=== PATIENT | male | born 1955 | race Caucasian/White ===

== ENCOUNTER 2021-02-09 13:25 | Observation (INO) ==
[2021-02-09] MEDS ORDERED: Naloxone 0.4 MG/ML INJ IVP PRN (14:57)
[2021-02-09] MEDS ORDERED: Acetaminophen 325 MG TABLET PO PRN (14:57)
[2021-02-09] MEDS ORDERED: Ipratropium/Albuterol Neb 3 ML IH PRN (15:00)
[2021-02-09] MEDS ORDERED: *HR* LORazepam 2 MG/ML VIAL IVP PRN ×2 (15:01→15:07)
[2021-02-09] MEDS ORDERED: Dextrose Gel 15 GM/37.5 ML TUBE PO PRN ×2 (15:05)
[2021-02-09] MEDS ORDERED: *HR* Dextrose 50 % in Water (Vial) 50 ML VIAL IVP PRN (15:05)
[2021-02-09] MEDS ORDERED: D5% in Water 1,000 ML IVC PRN (15:05)
[2021-02-09] MEDS ORDERED: *HR* Labetalol 20 MG/4 ML SYRINGE IVP PRN (15:11)
[2021-02-09 15:33] LABS: Basophils % 0.8 %; Eosinophils % 0.6 %; Hematocrit 41.1 % (37.5-50.1); Hemoglobin 15.1 g/dL (12.9-16.9); Immature Granulocytes % 0.4 % (0-4); Lymphocytes % 18.3 %; Mean Corpuscular HGB Conc 36.7 g/dL (31.6-35.5); Mean Corpuscular Volume 95.4 fL (83.0-100.0); Mean Platelet Volume 10.4 fL (9.4-12.4); Monocytes # 0.7 K/mcL (0.0-1.3); Neutrophils # 3.4 K/mcL (1.6-8.9); Red Blood Count 4.31 M/mcL (4.19-5.50); Red Cell Distribution Width 11.9 % (11.5-14.5); Segmented Neutrophils % 65.9 %; White Blood Count 5.2 K/mcL (4.3-11.1)
[2021-02-09 15:34] LABS: Platelet Count 68 K/mcL (140-400)
[2021-02-09 15:52] LABS: Amylase 39 Units/L (29-103); Ethanol < 10 mg/dL (Less than 10); Lipase 92 Units/L (11-82)
[2021-02-09 15:59] LABS: BUN/Creatinine Ratio 12 (6-26); Blood Urea Nitrogen 9 mg/dL (8-23); Calcium 9.5 mg/dL (8.6-10.3); Carbon Dioxide 22 mEq/L (23-29); Chloride 83 mEq/L (98-107); Glucose 201 mg/dL (70-105); Osmolality,Calculated 250 (280-300); Potassium 4.8 mEq/L (3.5-5.1); Sodium 118 mEq/L (136-145); eGFR For African Americans > 60 (> 60); eGFR For Non-African Americans > 60 (> 60)
[2021-02-09 16:07] LABS: Thyroid Stimulating Hormone 1.954 mcIU/mL (0.340-5.600)
[2021-02-09] MEDS: 0.9 % Sodium Chloride 1,000 ML IVC SCH (16:20)
[2021-02-09] MEDS: carvediloL 6.25 MG TABLET PO SCH (16:21)
[2021-02-09 16:26] LABS: Estimated Average Glucose 246 mg/dl; Hemoglobin A1C 10.2 %
[2021-02-09] MEDS: *HR* LORazepam 2 MG/ML VIAL IVP PRN (16:34)
[2021-02-09] MEDS: Insulin LISPRO 300 UNITS/3 ML VIAL SUBQ SCH (17:04)
[2021-02-09] MEDS: *HR* Heparin 5,000 UNIT/ML VIAL SQ SCH (18:23)
[2021-02-09] MEDS ORDERED: traZODone 50 MG TABLET PO SCH (21:00)
[2021-02-09 21:32] LABS: BUN/Creatinine Ratio 14 (6-26); Blood Urea Nitrogen 13 mg/dL (8-23); Calcium 8.7 mg/dL (8.6-10.3); Carbon Dioxide 23 mEq/L (23-29); Chloride 85 mEq/L (98-107); Glucose 213 mg/dL (70-105); Osmolality,Calculated 252 (280-300); Potassium 5.1 mEq/L (3.5-5.1); Sodium 118 mEq/L (136-145); eGFR For African Americans > 60 (> 60); eGFR For Non-African Americans > 60 (> 60)
[2021-02-10] MEDS: *HR* LORazepam 2 MG/ML VIAL IVP PRN ×2 (00:07→21:56)
[2021-02-10 01:16] LABS: INR 1.2; Prothrombin Time 13.9 Seconds (9.4-12.1)
[2021-02-10 01:19] LABS: Activated Partial Thrombo Time 27.1 Seconds (26.0-36.0)
[2021-02-10 01:31] LABS: Alanine Aminotransferase 73 Units/L (7-52); Albumin 3.5 g/dL (3.5-5.7); Alkaline Phosphatase 64 Units/L (34-104); Aspartate Amino Transferase 74 Units/L (13-39); BUN/Creatinine Ratio 15 (6-26); Bilirubin,Total 2.7 mg/dL (0.3-1.0); Blood Urea Nitrogen 14 mg/dL (8-23); Carbon Dioxide 23 mEq/L (23-29); Chloride 87 mEq/L (98-107); Globulin 3.5 g/dL (2.4-3.5); Glucose 230 mg/dL (70-105); Osmolality,Calculated 258 (280-300); Potassium 4.5 mEq/L (3.5-5.1); Sodium 120 mEq/L (136-145); eGFR For African Americans > 60 (> 60); eGFR For Non-African Americans > 60 (> 60)
[2021-02-10] MEDS: *HR* Heparin 5,000 UNIT/ML VIAL SQ SCH ×2 (07:16→18:15)
[2021-02-10] MEDS: 0.9 % Sodium Chloride 1,000 ML IVC SCH (07:17)
[2021-02-10] MEDS: carvediloL 6.25 MG TABLET PO SCH (07:48)
[2021-02-10] MEDS: Insulin LISPRO 300 UNITS/3 ML VIAL SUBQ SCH ×5 (07:57→17:00)
[2021-02-10] MEDS ORDERED: *HR* LORazepam 0.5 MG TABLET PO PRN (11:41)
[2021-02-10] MEDS ORDERED: traZODone 50 MG TABLET PO PRN (12:37)
[2021-02-10] MEDS: Nicotine 14 MG PATCH.TD24 TD SCH (12:57)
[2021-02-10 18:13] LABS: Potassium,Urine 35.8 mEq/L; Sodium, Urine 53.1 mEq/L
[2021-02-10] MEDS: Insulin DETEMIR 100 UNIT/ML X5UNITS SUBQ SCH (20:08)
[2021-02-10] MEDS ORDERED: Pregabalin 75 MG CAPSULE PO SCH (21:00)
[2021-02-11 01:34] LABS: BUN/Creatinine Ratio 22 (6-26); Blood Urea Nitrogen 20 mg/dL (8-23); Carbon Dioxide 24 mEq/L (23-29); Chloride 96 mEq/L (98-107); Glucose 157 mg/dL (70-105); Osmolality,Calculated 276 (280-300); Phosphorous 3.1 mg/dL (2.7-4.5); Sodium 130 mEq/L (136-145); eGFR For African Americans > 60 (> 60); eGFR For Non-African Americans > 60 (> 60)
[2021-02-11] MEDS: *HR* Heparin 5,000 UNIT/ML VIAL SQ SCH (05:50)
[2021-02-11 06:58] VITALS: BP 120/69
[2021-02-11] MEDS: Insulin LISPRO 300 UNITS/3 ML VIAL SUBQ SCH ×2 (07:50→07:56)
[2021-02-11] MEDS: Insulin DETEMIR 100 UNIT/ML X5UNITS SUBQ SCH (07:52)
[2021-02-11] MEDS: Nicotine 14 MG PATCH.TD24 TD SCH (07:56)
[2021-02-11] MEDS ORDERED: Pregabalin 75 MG CAPSULE PO SCH (08:00)
[2021-02-11] MEDS ORDERED: Thiamine (B-1) 100 MG TABLET PO SCH (09:00)
[2021-02-11] MEDS ORDERED: lisinopriL 20 MG TABLET PO SCH (09:00)
[2021-02-11 09:10] LABS: Hepatitis B Surface Antigen Nonreactive (Nonreactive)
[2021-02-11 09:42] LABS: Hepatitis B Core IgM Nonreactive (Nonreactive)
[2021-02-11 09:52] LABS: Hepatitis C Virus Antibody Nonreactive (Nonreactive)
[2021-02-11 10:02] LABS: Hepatitis A Antibody IgM Nonreactive (Nonreactive)
== END 2021-02-11 09:28 | disposition home or self-care (01) ==
LOC: 1ANU → 2NNU → SUATTDRO 14:40
PROVIDERS: ADMIT Internal Medicine; ATTEND Internal Medicine

== ENCOUNTER 2021-07-24 13:00 | Observation (INO) ==
[2021-07-24 13:45] LABS: Eosinophils % 0.3 %; Red Cell Distribution Width 13.2 % (11.5-14.5)
[2021-07-24 13:47] LABS: Basophils % 0.5 %; Hematocrit 45.3 % (37.5-50.1); Hemoglobin 16.4 g/dL (12.9-16.9); Immature Granulocytes % 0.4 % (0-4); Immature Platelets 5.8 % (1.1-6.1); Lymphocytes # 1.1 K/mcL (0.6-4.6); Lymphocytes % 14.7 %; Mean Corpuscular HGB Conc 36.2 g/dL (31.6-35.5); Mean Corpuscular Hemoglobin 33.7 pg (28.0-33.3); Mean Platelet Volume 10.2 fL (9.4-12.4); Monocytes # 0.8 K/mcL (0.0-1.3); Monocytes % 11.3 %; Neutrophils # 5.4 K/mcL (1.6-8.9); Red Blood Count 4.87 M/mcL (4.19-5.50); Segmented Neutrophils % 72.8 %; White Blood Count 7.4 K/mcL (4.3-11.1)
[2021-07-24 13:50] LABS: Platelet Count 74 K/mcL (140-400)
[2021-07-24 14:31] LABS: BUN/Creatinine Ratio 18 (6-26); Blood Urea Nitrogen 23 mg/dL (8-23); Calcium 10.9 mg/dL (8.6-10.3); Carbon Dioxide 21 mEq/L (23-29); Chloride 88 mEq/L (98-107); Glucose 194 mg/dL (70-105); Osmolality,Calculated 263 (280-300); Potassium 4.9 mEq/L (3.5-5.1); Sodium 122 mEq/L (136-145); Troponin I < 0.03 ng/mL (< 0.04); eGFR For African Americans > 60 (> 60); eGFR For Non-African Americans 56 (> 60)
[2021-07-24 14:33] LABS: Adenovirus Not Detected (Not Detect); Coronavirus 229E Not Detected (Not Detect); Coronavirus HKU1 Not Detected (Not Detect); Coronavirus NL63 Not Detected (Not Detect); Coronavirus OC43 Not Detected (Not Detect); Human Metapneumovirus Not Detected (Not Detect); Human Rhinovirus/Enterovirus Not Detected (Not Detect); Influenza A Subtype 2009 H1 Not Detected (Not Detect); Influenza B Not Detected (Not Detect); Parainfluenza Virus 1 Not Detected (Not Detect); Parainfluenza Virus 2 Not Detected (Not Detect); Parainfluenza Virus 3 Not Detected (Not Detect); Parainfluenza Virus 4 Not Detected (Not Detect); SARS-CoV-2 Not Detected (Not Detect)
[2021-07-24 14:34] LABS: Bordetella Pertussis Not Detected (Not Detect); Chlamydophila pneumoniae Not Detected (Not Detect); Mycoplasma pneumoniae Not Detected (Not Detect); Respiratory Syncytial Virus Not Detected (Not Detect)
[2021-07-24] MEDS ORDERED: 0.9 % Sodium Chloride 500 ML IVC ONE (15:15)
[2021-07-24] MEDS ORDERED: Ondansetron ODT 4 MG TAB.RAPDIS SL PRN (15:32)
[2021-07-24] MEDS ORDERED: Naloxone 0.4 MG/ML INJ IVP PRN ×3 (15:32→19:02)
[2021-07-24] MEDS ORDERED: Melatonin 3 MG TABLET PO PRN (15:32)
[2021-07-24 15:39] LABS: Bilirubin,Urine Negative (Negative); Blood,Urine Moderate (Negative); Clarity,Urine Clear (Clear); Color,Urine Light-Orange (Yellow); Glucose,Urine (UA) 100 mg/dL (Normal); Ketones,Urine 20 mg/dL (Negative); Leukocyte Esterase,Urine Negative (Negative); Mucus,Urine Few per lpf (None-Few); Nitrite,Urine Negative (Negative); Protein,Urine 50 mg/dL (Neg-Trace); RBC,Urine 0-3 per hpf (0-3); Specific Gravity,Urine 1.015 (1.010-1.025); Urobilinogen,Urine Normal (Normal); WBC,Urine 0-3 per hpf (0-3)
[2021-07-24] MEDS ORDERED: diazePAM 5 MG TABLET PO ONE (16:02)
[2021-07-24] MEDS ORDERED: *HR* LORazepam 2 MG/ML VIAL IVP PRN ×3 (19:56)
[2021-07-24] MEDS ORDERED: D5% in Water 1,000 ML IVC PRN (22:13)
[2021-07-24] MEDS ORDERED: *HR* Dextrose 50 % in Water (Vial) 50 ML VIAL IVP PRN (22:13)
[2021-07-24] MEDS ORDERED: Dextrose Gel 15 GM/37.5 ML TUBE PO PRN ×2 (22:13)
[2021-07-24] MEDS ORDERED: Insulin LISPRO 300 UNITS/3 ML VIAL SUBQ SCH (22:15)
[2021-07-25 02:08] LABS: Basophils % 0.6 %; Hemoglobin 15.8 g/dL (12.9-16.9); Immature Granulocytes % 0.4 % (0-4); Mean Corpuscular Volume 94.2 fL (83.0-100.0); Red Cell Distribution Width 13.2 % (11.5-14.5)
[2021-07-25 02:10] LABS: Basophils # 0.1 K/mcL (0.0-0.2); Eosinophils # 0.1 K/mcL (0.0-0.6); Eosinophils % 0.9 %; Hematocrit 43.9 % (37.5-50.1); Immature Platelets 5.6 % (1.1-6.1); Lymphocytes # 1.8 K/mcL (0.6-4.6); Lymphocytes % 22.2 %; Mean Corpuscular Hemoglobin 33.9 pg (28.0-33.3); Mean Platelet Volume 10.6 fL (9.4-12.4); Monocytes # 1.1 K/mcL (0.0-1.3); Neutrophils # 5.1 K/mcL (1.6-8.9); Red Blood Count 4.66 M/mcL (4.19-5.50); Segmented Neutrophils % 62.9 %; White Blood Count 8.1 K/mcL (4.3-11.1)
[2021-07-25 02:14] LABS: Platelet Count 85 K/mcL (140-400)
[2021-07-25 02:16] LABS: INR 1.2; Prothrombin Time 13.7 Seconds (9.4-12.1)
[2021-07-25 02:22] LABS: BUN/Creatinine Ratio 25 (6-26); Blood Urea Nitrogen 28 mg/dL (8-23); Calcium 10.3 mg/dL (8.6-10.3); Carbon Dioxide 26 mEq/L (23-29); Chloride 92 mEq/L (98-107); Chol/HDL Ratio 1.8 (0-4.9); Cholesterol 94 mg/dL (< 200); Glucose 77 mg/dL (70-105); HDL Cholesterol 52 mg/dL (40-59); LDL Cholesterol,Calculated 24 mg/dL (< 100); Magnesium 2.1 mg/dL (1.6-2.6); Osmolality,Calculated 268 (280-300); Phosphorous 2.3 mg/dL (2.7-4.5); Potassium 4.2 mEq/L (3.5-5.1); Sodium 127 mEq/L (136-145); Triglycerides 88 mg/dL (< 150); eGFR For African Americans > 60 (> 60); eGFR For Non-African Americans > 60 (> 60)
[2021-07-25 07:21] VITALS: O2SAT 95
[2021-07-25] MEDS ORDERED: Insulin LISPRO 300 UNITS/3 ML VIAL SUBQ SCH (07:30)
[2021-07-25 10:36] VITALS: BP 138/80; PULSE 83; TEMP 98.2
[2021-07-25] MEDS ORDERED: Thiamine (B-1) 100 MG, Folic Acid 1 MG, MVI, adult with vitamin K 10 ML in 0.9 % Sodi... IVPB SCH (18:00)
== END 2021-07-25 11:50 | disposition home or self-care (01) ==
LOC: 3ANU 13:00 → EMEROOARM 13:00 → 3ANU 18:20
PROVIDERS: ADMIT Internal Medicine; ATTEND Internal Medicine

== ENCOUNTER 2022-05-22 17:10 | Inpatient (IN) ==
[2022-05-22 18:49] LABS: Basophils % 0.8 %; Eosinophils # 0.1 K/mcL (0.0-0.6); Eosinophils % 2.1 %; Hematocrit 35.5 % (37.5-50.1); Immature Granulocytes % 0.4 % (0-4); Immature Platelets 7.9 % (1.1-6.1); Lymphocytes # 1.3 K/mcL (0.6-4.6); Lymphocytes % 24.8 %; Mean Corpuscular HGB Conc 36.6 g/dL (31.6-35.5); Mean Corpuscular Hemoglobin 36.7 pg (28.0-33.3); Mean Corpuscular Volume 100.3 fL (83.0-100.0); Mean Platelet Volume 10.4 fL (9.4-12.4); Monocytes # 0.6 K/mcL (0.0-1.3); Monocytes % 10.9 %; Neutrophils # 3.2 K/mcL (1.6-8.9); Platelet Count 71 K/mcL (140-400); Red Blood Count 3.54 M/mcL (4.19-5.50); Red Cell Distribution Width 13.2 % (11.5-14.5); White Blood Count 5.2 K/mcL (4.3-11.1)
[2022-05-22 19:05] LABS: BUN/Creatinine Ratio 12 (6-26); Blood Urea Nitrogen 11 mg/dL (8-23); Calcium 7.5 mg/dL (8.6-10.3); Carbon Dioxide 25 mEq/L (23-29); Chloride 85 mEq/L (98-107); Glucose 284 mg/dL (70-105); Osmolality,Calculated 264 (280-300); Potassium 4.2 mEq/L (3.5-5.1); Sodium 122 mEq/L (136-145); eGFR For African Americans > 60 (> 60); eGFR For Non-African Americans > 60 (> 60)
[2022-05-22] MEDS ORDERED: Ondansetron 4 MG/2 ML VIAL IVP STA (19:29)
[2022-05-22] MEDS ORDERED: Morphine Sulfate 2 MG/ML SYRINGE IVP ONE ×2 (19:29→23:55)
[2022-05-22] MEDS ORDERED: Iopamidol - 370 500 ML MLS IVP ONE (19:29)
[2022-05-22 20:18] LABS: Acetaminophen < 10 mcg/mL (10-20); Alanine Aminotransferase 63 Units/L (7-52); Albumin 3.2 g/dL (3.5-5.7); Albumin/Globulin Ratio 0.9 (1.1-2.2); Alkaline Phosphatase 93 Units/L (34-104); Aspartate Amino Transferase 76 Units/L (13-39); Bilirubin,Total 3.2 mg/dL (0.3-1.0); Ethanol 100 mg/dL (Less than 10); Globulin 3.7 g/dL (2.4-3.5); INR 1.2; Lipase 46 Units/L (11-82); Magnesium 1.2 mg/dL (1.6-2.6); Prothrombin Time 12.9 Seconds (9.4-12.1); Total Protein 6.9 g/dL (6.4-8.9)
[2022-05-22 20:20] LABS: Activated Partial Thrombo Time 32.6 Seconds (26.0-36.0)
[2022-05-22] MEDS ORDERED: *HR* LORazepam 1 MG TABLET PO ONE (22:46)
[2022-05-23] MEDS ORDERED: 0.9 % Sodium Chloride 1,000 ML IV ONE (01:03)
[2022-05-23] MEDS ORDERED: Ondansetron 4 MG/2 ML VIAL IVP PRN (01:43)
[2022-05-23] MEDS ORDERED: Naloxone 0.4 MG/ML INJ IVP PRN (01:43)
[2022-05-23] MEDS ORDERED: *HR* LORazepam 2 MG/ML VIAL IVP PRN (01:50)
[2022-05-23] MEDS ORDERED: Calcium Gluconate 1gm/50mL 1 GM/50 ML BAG IVPB ONE (03:47)
[2022-05-23] MEDS ORDERED: *HR* Metoprolol 5 MG/5 ML VIAL IVP ONE (04:12)
[2022-05-23 04:51] LABS: Basophils % 0.9 %; Eosinophils # 0.2 K/mcL (0.0-0.6); Eosinophils % 3.4 %; Hemoglobin 13.3 g/dL (12.9-16.9); Immature Granulocytes % 0.5 % (0-4); Immature Platelets 6.9 % (1.1-6.1); Lymphocytes # 1.3 K/mcL (0.6-4.6); Lymphocytes % 28.9 %; Mean Corpuscular HGB Conc 35.9 g/dL (31.6-35.5); Mean Corpuscular Hemoglobin 36.8 pg (28.0-33.3); Mean Corpuscular Volume 102.5 fL (83.0-100.0); Mean Platelet Volume 10.5 fL (9.4-12.4); Monocytes # 0.5 K/mcL (0.0-1.3); Monocytes % 11.2 %; Neutrophils # 2.4 K/mcL (1.6-8.9); Red Blood Count 3.61 M/mcL (4.19-5.50); Red Cell Distribution Width 13.4 % (11.5-14.5); Segmented Neutrophils % 55.1 %; White Blood Count 4.4 K/mcL (4.3-11.1)
[2022-05-23 04:53] LABS: Platelet Count 57 K/mcL (140-400)
[2022-05-23] MEDS ORDERED: Dextrose Gel 15 GM/37.5 ML TUBE PO PRN ×2 (05:05)
[2022-05-23] MEDS ORDERED: *HR* Dextrose 50 % in Water (Syg) 50 ML SYRINGE IVP PRN (05:05)
[2022-05-23] MEDS ORDERED: D5% in Water 1,000 ML IVC PRN (05:05)
[2022-05-23 05:11] LABS: BUN/Creatinine Ratio 12 (6-26); Blood Urea Nitrogen 10 mg/dL (8-23); Calcium 8.5 mg/dL (8.6-10.3); Carbon Dioxide 29 mEq/L (23-29); Chloride 89 mEq/L (98-107); Chol/HDL Ratio 2.4 (0-4.9); Cholesterol 73 mg/dL (< 200); Glucose 204 mg/dL (70-105); HDL Cholesterol 30 mg/dL (40-59); LDL Cholesterol,Calculated 20 mg/dL (< 100); Magnesium 1.6 mg/dL (1.6-2.6); Osmolality,Calculated 265 (280-300); Phosphorous 3.1 mg/dL (2.7-4.5); Potassium 4.2 mEq/L (3.5-5.1); Sodium 125 mEq/L (136-145); Triglycerides 117 mg/dL (< 150); eGFR For African Americans > 60 (> 60); eGFR For Non-African Americans > 60 (> 60)
[2022-05-23 05:19] LABS: INR 1.2; Prothrombin Time 13.4 Seconds (9.4-12.1)
[2022-05-23 05:24] LABS: Thyroid Stimulating Hormone 6.135 mcIU/mL (0.340-5.600)
[2022-05-23 05:53] LABS: Folate 5.1 ng/mL (3.0-16.0)
[2022-05-23] MEDS: Thiamine (B-1) 100 MG TABLET PO SCH (09:01)
[2022-05-23] MEDS: Multivit/Ca/Min/Fe/FA 1 TAB TABLET PO SCH (09:01)
[2022-05-23] MEDS: Folic Acid 1 MG TABLET PO SCH (09:01)
[2022-05-23] MEDS: *HR* LORazepam 0.5 MG TABLET PO SCH ×3 (09:02→19:58)
[2022-05-23] MEDS: Insulin LISPRO 300 UNITS/3 ML VIAL SUBQ SCH ×3 (09:03→18:18)
[2022-05-23] MEDS: Furosemide 40 MG/4 ML VIAL IVP SCH ×2 (10:09→19:57)
[2022-05-23 10:33] LABS: BUN/Creatinine Ratio 12 (6-26); Blood Urea Nitrogen 10 mg/dL (8-23); Calcium 8.2 mg/dL (8.6-10.3); Carbon Dioxide 22 mEq/L (23-29); Chloride 89 mEq/L (98-107); Glucose 228 mg/dL (70-105); Osmolality,Calculated 260 (280-300); Potassium 4.9 mEq/L (3.5-5.1); Sodium 122 mEq/L (136-145); eGFR For African Americans > 60 (> 60); eGFR For Non-African Americans > 60 (> 60)
[2022-05-23] MEDS: *HR* HYDROcodone/Acet 7.5/325 mg TABLET PO PRN ×2 (11:06→17:44)
[2022-05-23] MEDS ORDERED: Thiamine (B-1) 100 MG, Folic Acid 1 MG, MVI, adult with vitamin K 10 ML in 0.9 % Sodi... IVPB SCH (18:00)
[2022-05-23] MEDS ORDERED: *HR* HYDROmorphone (PF) 1 MG/ML SYRINGE IVP ONE (20:44)
[2022-05-23] MEDS: Pregabalin 75 MG CAPSULE PO SCH (21:05)
[2022-05-23] MEDS: Nicotine 14 MG PATCH.TD24 TD SCH (21:05)
[2022-05-23] MEDS ORDERED: traZODone 50 MG TABLET PO PRN (21:32)
[2022-05-23] MEDS: *HR* LORazepam 2 MG/ML VIAL IVP PRN (23:12)
[2022-05-24] MEDS: *HR* HYDROcodone/Acet 7.5/325 mg TABLET PO PRN ×3 (01:16→17:21)
[2022-05-24] MEDS: Piperacillin/Tazobactam 3.375 GM in 0.9 % Sodium Chloride Mini Bag 100 ML IVPB SCH ×3 (01:16→17:14)
[2022-05-24] MEDS: *HR* LORazepam 2 MG/ML VIAL IVP PRN (05:04)
[2022-05-24] MEDS: Insulin LISPRO 300 UNITS/3 ML VIAL SUBQ SCH ×3 (06:45→17:18)
[2022-05-24 07:04] LABS: Basophils % 0.9 %; Red Blood Count 3.23 M/mcL (4.19-5.50)
[2022-05-24 07:06] LABS: Eosinophils # 0.1 K/mcL (0.0-0.6); Eosinophils % 3.1 %; Hematocrit 33.5 % (37.5-50.1); Hemoglobin 11.8 g/dL (12.9-16.9); Immature Granulocytes % 0.6 % (0-4); Immature Platelets 7.2 % (1.1-6.1); Lymphocytes # 0.8 K/mcL (0.6-4.6); Lymphocytes % 26.4 %; Mean Corpuscular HGB Conc 35.2 g/dL (31.6-35.5); Mean Corpuscular Hemoglobin 36.5 pg (28.0-33.3); Mean Corpuscular Volume 103.7 fL (83.0-100.0); Monocytes # 0.4 K/mcL (0.0-1.3); Monocytes % 11.6 %; Neutrophils # 1.8 K/mcL (1.6-8.9); Red Cell Distribution Width 13.6 % (11.5-14.5); Segmented Neutrophils % 57.4 %; White Blood Count 3.2 K/mcL (4.3-11.1)
[2022-05-24 07:16] LABS: Platelet Count 50 K/mcL (140-400)
[2022-05-24 07:24] LABS: Albumin 2.8 g/dL (3.5-5.7); Albumin/Globulin Ratio 0.8 (1.1-2.2); Bilirubin,Direct 2.6 mg/dL (0.0-0.2); Bilirubin,Indirect 1.9 mg/dL (0.0-1.0); Bilirubin,Total 4.5 mg/dL (0.3-1.0); Globulin 3.4 g/dL (2.4-3.5); Total Protein 6.2 g/dL (6.4-8.9)
[2022-05-24 07:35] LABS: BUN/Creatinine Ratio 16 (6-26); Blood Urea Nitrogen 16 mg/dL (8-23); Carbon Dioxide 31 mEq/L (23-29); Chloride 88 mEq/L (98-107); Glucose 192 mg/dL (70-105); Magnesium 1.4 mg/dL (1.6-2.6); Osmolality,Calculated 268 (280-300); Potassium 4.5 mEq/L (3.5-5.1); Sodium 126 mEq/L (136-145); eGFR For African Americans > 60 (> 60); eGFR For Non-African Americans > 60 (> 60)
[2022-05-24] MEDS: Furosemide 40 MG/4 ML VIAL IVP SCH ×2 (08:53→22:12)
[2022-05-24] MEDS: *HR* LORazepam 0.5 MG TABLET PO SCH ×3 (09:00→22:12)
[2022-05-24] MEDS: lisinopriL 20 MG TABLET PO SCH (09:00)
[2022-05-24] MEDS: Multivit/Ca/Min/Fe/FA 1 TAB TABLET PO SCH (09:00)
[2022-05-24] MEDS: Thiamine (B-1) 100 MG TABLET PO SCH (09:00)
[2022-05-24] MEDS: Folic Acid 1 MG TABLET PO SCH (09:00)
[2022-05-24] MEDS: Pregabalin 75 MG CAPSULE PO SCH ×2 (09:01→22:12)
[2022-05-24] MEDS: Nicotine 14 MG PATCH.TD24 TD SCH (09:02)
[2022-05-24] MEDS ORDERED: Ipratropium/Albuterol Neb 3 ML IH PRN (10:05)
[2022-05-24] MEDS: Thiamine (B-1) 100 MG, Folic Acid 1 MG, MVI, adult with vitamin K 10 ML in 0.9 % Sodi... IVPB SCH (22:11)
[2022-05-25] MEDS: Insulin LISPRO 300 UNITS/3 ML VIAL SUBQ SCH ×5 (00:13→23:57)
[2022-05-25] MEDS: Piperacillin/Tazobactam 3.375 GM in 0.9 % Sodium Chloride Mini Bag 100 ML IVPB SCH ×3 (00:13→15:15)
[2022-05-25] MEDS: *HR* HYDROcodone/Acet 7.5/325 mg TABLET PO PRN ×4 (00:14→19:38)
[2022-05-25 00:54] LABS: Hemoglobin 12.9 g/dL (12.9-16.9); Immature Granulocytes % 0.3 % (0-4)
[2022-05-25 00:56] LABS: Basophils % 0.6 %; Eosinophils # 0.1 K/mcL (0.0-0.6); Eosinophils % 2.6 %; Hematocrit 36.4 % (37.5-50.1); Immature Platelets 6.3 % (1.1-6.1); Lymphocytes % 28.1 %; Mean Corpuscular HGB Conc 35.4 g/dL (31.6-35.5); Mean Corpuscular Hemoglobin 36.4 pg (28.0-33.3); Mean Corpuscular Volume 102.8 fL (83.0-100.0); Mean Platelet Volume 10.8 fL (9.4-12.4); Monocytes # 0.4 K/mcL (0.0-1.3); Monocytes % 10.3 %; Red Blood Count 3.54 M/mcL (4.19-5.50); Red Cell Distribution Width 13.6 % (11.5-14.5); Segmented Neutrophils % 58.1 %; White Blood Count 3.5 K/mcL (4.3-11.1)
[2022-05-25 00:57] LABS: Platelet Count 54 K/mcL (140-400)
[2022-05-25 01:20] LABS: Alanine Aminotransferase 46 Units/L (7-52); Albumin 2.4 g/dL (3.5-5.7); Albumin/Globulin Ratio 0.8 (1.1-2.2); Alkaline Phosphatase 73 Units/L (34-104); Aspartate Amino Transferase 60 Units/L (13-39); BUN/Creatinine Ratio 18 (6-26); Bilirubin,Direct 1.3 mg/dL (0.0-0.2); Bilirubin,Indirect 0.9 mg/dL (0.0-1.0); Bilirubin,Total 2.2 mg/dL (0.3-1.0); Blood Urea Nitrogen 14 mg/dL (8-23); Calcium 6.4 mg/dL (8.6-10.3); Carbon Dioxide 25 mEq/L (23-29); Chloride 99 mEq/L (98-107); Globulin 3.2 g/dL (2.4-3.5); Glucose 197 mg/dL (70-105); Osmolality,Calculated 278 (280-300); Potassium 2.7 mEq/L (3.5-5.1); Sodium 131 mEq/L (136-145); Total Protein 5.6 g/dL (6.4-8.9); eGFR For African Americans > 60 (> 60); eGFR For Non-African Americans > 60 (> 60)
[2022-05-25 01:48] LABS: Magnesium 1.1 mg/dL (1.6-2.6)
[2022-05-25] MEDS: *HR* LORazepam 2 MG/ML VIAL IVP PRN (02:36)
[2022-05-25] MEDS: Pregabalin 75 MG CAPSULE PO SCH ×2 (08:09→19:38)
[2022-05-25] MEDS: Folic Acid 1 MG TABLET PO SCH (08:09)
[2022-05-25] MEDS: Multivit/Ca/Min/Fe/FA 1 TAB TABLET PO SCH (08:09)
[2022-05-25] MEDS: lisinopriL 20 MG TABLET PO SCH (08:09)
[2022-05-25] MEDS: Furosemide 40 MG/4 ML VIAL IVP SCH ×2 (08:10→19:38)
[2022-05-25] MEDS: Nicotine 14 MG PATCH.TD24 TD SCH (08:10)
[2022-05-25] MEDS: Thiamine (B-1) 100 MG TABLET PO SCH (08:11)
[2022-05-25] MEDS: *HR* LORazepam 0.5 MG TABLET PO SCH ×3 (08:15→19:38)
[2022-05-25] MEDS: Magnesium Oxide 400 MG TABLET PO SCH ×2 (08:22→19:38)
[2022-05-25] MEDS: Thiamine (B-1) 100 MG, Folic Acid 1 MG, MVI, adult with vitamin K 10 ML in 0.9 % Sodi... IVPB SCH (19:37)
[2022-05-25 21:19] LABS: BUN/Creatinine Ratio 16 (6-26); Blood Urea Nitrogen 17 mg/dL (8-23); Calcium 8.5 mg/dL (8.6-10.3); Carbon Dioxide 31 mEq/L (23-29); Chloride 90 mEq/L (98-107); Glucose 212 mg/dL (70-105); Osmolality,Calculated 276 (280-300); Potassium 3.7 mEq/L (3.5-5.1); Sodium 129 mEq/L (136-145); eGFR For African Americans > 60 (> 60); eGFR For Non-African Americans > 60 (> 60)
[2022-05-26] MEDS: *HR* HYDROcodone/Acet 7.5/325 mg TABLET PO PRN ×2 (02:21→11:58)
[2022-05-26] MEDS: Piperacillin/Tazobactam 3.375 GM in 0.9 % Sodium Chloride Mini Bag 100 ML IVPB SCH ×2 (02:21→11:59)
[2022-05-26 05:37] LABS: Mean Platelet Volume 10.5 fL (9.4-12.4)
[2022-05-26 05:39] LABS: Basophils % 0.9 %; Eosinophils # 0.1 K/mcL (0.0-0.6); Hematocrit 34.3 % (37.5-50.1); Immature Platelets 6.4 % (1.1-6.1); Lymphocytes # 1.2 K/mcL (0.6-4.6); Lymphocytes % 35.5 %; Mean Corpuscular Hemoglobin 36.8 pg (28.0-33.3); Mean Corpuscular Volume 105.2 fL (83.0-100.0); Monocytes # 0.4 K/mcL (0.0-1.3); Monocytes % 11.9 %; Neutrophils # 1.6 K/mcL (1.6-8.9); Red Blood Count 3.26 M/mcL (4.19-5.50); Segmented Neutrophils % 47.7 %; White Blood Count 3.3 K/mcL (4.3-11.1)
[2022-05-26 05:41] LABS: Platelet Count 53 K/mcL (140-400)
[2022-05-26 05:53] LABS: Alanine Aminotransferase 47 Units/L (7-52); Albumin 2.7 g/dL (3.5-5.7); Albumin/Globulin Ratio 0.7 (1.1-2.2); Alkaline Phosphatase 81 Units/L (34-104); Aspartate Amino Transferase 61 Units/L (13-39); BUN/Creatinine Ratio 16 (6-26); Bilirubin,Direct 1.1 mg/dL (0.0-0.2); Bilirubin,Indirect 0.9 mg/dL (0.0-1.0); Blood Urea Nitrogen 16 mg/dL (8-23); Calcium 8.2 mg/dL (8.6-10.3); Carbon Dioxide 31 mEq/L (23-29); Chloride 95 mEq/L (98-107); Globulin 3.7 g/dL (2.4-3.5); Glucose 85 mg/dL (70-105); Magnesium 1.6 mg/dL (1.6-2.6); Osmolality,Calculated 276 (280-300); Potassium 3.4 mEq/L (3.5-5.1); Sodium 133 mEq/L (136-145); Total Protein 6.4 g/dL (6.4-8.9); eGFR For African Americans > 60 (> 60); eGFR For Non-African Americans > 60 (> 60)
[2022-05-26] MEDS: Insulin LISPRO 300 UNITS/3 ML VIAL SUBQ SCH ×3 (05:58→17:28)
[2022-05-26] MEDS: Pregabalin 75 MG CAPSULE PO SCH (11:58)
[2022-05-26] MEDS: Furosemide 40 MG/4 ML VIAL IVP SCH (11:58)
[2022-05-26] MEDS: Multivit/Ca/Min/Fe/FA 1 TAB TABLET PO SCH (11:58)
[2022-05-26] MEDS: *HR* LORazepam 0.5 MG TABLET PO SCH ×2 (11:58→14:59)
[2022-05-26] MEDS: Thiamine (B-1) 100 MG TABLET PO SCH (11:58)
[2022-05-26] MEDS: Folic Acid 1 MG TABLET PO SCH (11:59)
[2022-05-26] MEDS: lisinopriL 20 MG TABLET PO SCH (11:59)
[2022-05-26] MEDS: Magnesium Oxide 400 MG TABLET PO SCH (11:59)
[2022-05-26] MEDS: Nicotine 14 MG PATCH.TD24 TD SCH (12:00)
[2022-05-26 16:12] VITALS: BP 108/76; PULSE 82; TEMP 98.4; O2SAT 96
[2022-05-26] MEDS ORDERED: Piperacillin/Tazobactam 3.375 GM in 0.9 % Sodium Chloride Mini Bag 100 ML IVPB SCH (20:00)
== END 2022-05-26 19:00 | disposition home or self-care (01) | DRG 378 ==
LOC: EMEROOARM 17:10 → SUATTDRO 05-23 02:09 → 3NENU 05-23 02:09
PROVIDERS: ADMIT Internal Medicine; ATTEND Pharmacist

== ENCOUNTER 2022-06-10 15:11 | Observation (INO) ==
[2022-06-10 16:59] LABS: Basophils # 0.1 K/mcL (0.0-0.2); Basophils % 0.8 %; Eosinophils # 0.1 K/mcL (0.0-0.6); Eosinophils % 1.5 %; Hematocrit 38.6 % (37.5-50.1); Hemoglobin 13.4 g/dL (12.9-16.9); Immature Granulocytes % 0.2 % (0-4); Lymphocytes # 1.2 K/mcL (0.6-4.6); Lymphocytes % 19.9 %; Mean Corpuscular HGB Conc 34.7 g/dL (31.6-35.5); Mean Corpuscular Hemoglobin 36.1 pg (28.0-33.3); Mean Platelet Volume 10.9 fL (9.4-12.4); Monocytes # 0.7 K/mcL (0.0-1.3); Monocytes % 11.8 %; Neutrophils # 4.1 K/mcL (1.6-8.9); Platelet Count 123 K/mcL (140-400); Red Blood Count 3.71 M/mcL (4.19-5.50); Red Cell Distribution Width 13.5 % (11.5-14.5); Segmented Neutrophils % 65.8 %; White Blood Count 6.2 K/mcL (4.3-11.1)
[2022-06-10 17:14] LABS: BUN/Creatinine Ratio 8 (6-26); Blood Urea Nitrogen 6 mg/dL (8-23); Calcium 10.3 mg/dL (8.6-10.3); Carbon Dioxide 28 mEq/L (23-29); Chloride 95 mEq/L (98-107); Glucose 235 mg/dL (70-105); Osmolality,Calculated 275 (280-300); Potassium 4.2 mEq/L (3.5-5.1); Sodium 130 mEq/L (136-145); eGFR For African Americans > 60 (> 60); eGFR For Non-African Americans > 60 (> 60)
[2022-06-10] MEDS ORDERED: Morphine Sulfate 2 MG/ML SYRINGE IVP ONE ×2 (17:34→22:32)
[2022-06-10] MEDS ORDERED: Ondansetron 4 MG/2 ML VIAL IVP ONE (17:34)
[2022-06-10] MEDS ORDERED: 0.9 % Sodium Chloride 1,000 ML IVC ONE (17:34)
[2022-06-10] MEDS ORDERED: Iopamidol - 370 500 ML MLS IVP ONE (17:36)
[2022-06-10 18:04] LABS: Troponin I < 0.03 ng/mL (< 0.04)
[2022-06-10 18:05] LABS: Alanine Aminotransferase 56 Units/L (7-52); Albumin 3.3 g/dL (3.5-5.7); Albumin/Globulin Ratio 0.8 (1.1-2.2); Alkaline Phosphatase 105 Units/L (34-104); Aspartate Amino Transferase 73 Units/L (13-39); Bilirubin,Direct 0.7 mg/dL (0.0-0.2); Bilirubin,Indirect 0.9 mg/dL (0.0-1.0); Bilirubin,Total 1.6 mg/dL (0.3-1.0); Globulin 4.2 g/dL (2.4-3.5); Lipase 54 Units/L (11-82); Total Protein 7.5 g/dL (6.4-8.9)
[2022-06-10 18:17] LABS: INR 1.2; Prothrombin Time 13.2 Seconds (9.4-12.1)
[2022-06-10 18:20] LABS: Activated Partial Thrombo Time 30.3 Seconds (26.0-36.0)
[2022-06-10 19:56] LABS: Bacteria,Urine Few per hpf (None-Few); Bilirubin,Urine Negative (Negative); Blood,Urine Negative (Negative); Clarity,Urine Clear (Clear); Color,Urine Light-Yellow (Yellow); Glucose,Urine (UA) 300 mg/dL (Normal); Ketones,Urine Negative (Negative); Leukocyte Esterase,Urine Negative (Negative); Mucus,Urine Few per lpf (None-Few); Nitrite,Urine Negative (Negative); Protein,Urine Trace mg/dL (Neg-Trace); RBC,Urine 0-3 per hpf (0-3); Specific Gravity,Urine 1.027 (1.010-1.025); Squamous Epithelial Cell,Urine Few per hpf (None-Few); Urobilinogen,Urine Normal (Normal); WBC,Urine 0-3 per hpf (0-3)
[2022-06-10] MEDS ORDERED: Acetaminophen 325 MG TABLET PO PRN (22:02)
[2022-06-10] MEDS ORDERED: *HR* Promethazine 25 MG/ML VIAL IM PRN (22:02)
[2022-06-10] MEDS ORDERED: Naloxone 0.4 MG/ML INJ IVP PRN (22:02)
[2022-06-10] MEDS ORDERED: Ondansetron 4 MG/2 ML VIAL IVP PRN (22:02)
[2022-06-10] MEDS ORDERED: Melatonin 3 MG TABLET PO PRN (22:02)
[2022-06-10] MEDS ORDERED: *HR* LORazepam 2 MG/ML VIAL IVP PRN ×3 (22:07)
[2022-06-10] MEDS ORDERED: *HR* LORazepam 2 MG/ML VIAL IVP ONE (22:33)
[2022-06-10] MEDS ORDERED: Furosemide 40 MG/4 ML VIAL IVP ONE (22:40)
[2022-06-10] MEDS: *HR* OxyCODONE Immed Rel 5 MG TABLET PO PRN (22:42)
[2022-06-11] MEDS: hydrOXYzine pamoate 25 MG CAPSULE PO PRN ×3 (00:02→22:42)
[2022-06-11] MEDS ORDERED: traZODone 50 MG TABLET PO PRN (00:25)
[2022-06-11] MEDS: Nicotine 14 MG PATCH.TD24 TD SCH ×2 (01:08→09:34)
[2022-06-11 01:40] LABS: Basophils # 0.1 K/mcL (0.0-0.2); Basophils % 1.2 %; Eosinophils # 0.2 K/mcL (0.0-0.6); Eosinophils % 3.6 %; Hematocrit 38.6 % (37.5-50.1); Hemoglobin 13.3 g/dL (12.9-16.9); Immature Granulocytes % 0.4 % (0-4); Lymphocytes # 1.6 K/mcL (0.6-4.6); Lymphocytes % 31.8 %; Mean Corpuscular HGB Conc 34.5 g/dL (31.6-35.5); Mean Corpuscular Hemoglobin 36.5 pg (28.0-33.3); Mean Platelet Volume 10.4 fL (9.4-12.4); Monocytes # 0.5 K/mcL (0.0-1.3); Monocytes % 10.3 %; Neutrophils # 2.6 K/mcL (1.6-8.9); Platelet Count 118 K/mcL (140-400); Red Blood Count 3.64 M/mcL (4.19-5.50); Red Cell Distribution Width 13.5 % (11.5-14.5); Segmented Neutrophils % 52.7 %; White Blood Count 4.9 K/mcL (4.3-11.1)
[2022-06-11 01:47] LABS: INR 1.3; Prothrombin Time 14.3 Seconds (9.4-12.1)
[2022-06-11 01:59] LABS: BUN/Creatinine Ratio 9 (6-26); Blood Urea Nitrogen 7 mg/dL (8-23); Calcium 9.7 mg/dL (8.6-10.3); Carbon Dioxide 28 mEq/L (23-29); Chloride 97 mEq/L (98-107); Glucose 186 mg/dL (70-105); Lactate Dehydrogenase 145 Units/L (140-271); Magnesium 1.3 mg/dL (1.6-2.6); Osmolality,Calculated 275 (280-300); Phosphorous 3.6 mg/dL (2.7-4.5); Potassium 4.1 mEq/L (3.5-5.1); Sodium 131 mEq/L (136-145); eGFR For African Americans > 60 (> 60); eGFR For Non-African Americans > 60 (> 60)
[2022-06-11 02:01] LABS: % Iron Saturation 85 % (20-55); Iron 227 mcg/dL (65-175); Transferrin 190 mg/dL (203-362)
[2022-06-11 02:19] LABS: Ferritin 461 ng/mL (20-250)
[2022-06-11] MEDS: *HR* Heparin 5,000 UNIT/ML VIAL SQ SCH ×3 (04:40→20:59)
[2022-06-11] MEDS: *HR* OxyCODONE Immed Rel 5 MG TABLET PO PRN ×3 (04:40→20:58)
[2022-06-11] MEDS ORDERED: cefTRIAXone 2,000 MG in 0.9 % Sodium Chloride 20 ML IVP SCH (09:00)
[2022-06-11] MEDS: Folic Acid 1 MG TABLET PO SCH (09:34)
[2022-06-11] MEDS: Thiamine (B-1) 100 MG TABLET PO SCH (09:34)
[2022-06-11] MEDS: Vitamin B Complex/Vit C/Vit E 1 EACH TABLET PO SCH (09:34)
[2022-06-11] MEDS: Furosemide 20 MG TABLET PO SCH (10:23)
[2022-06-11 14:48] LABS: Appearance of Peritoneal Fl CLEAR (Clear)
[2022-06-11 14:55] LABS: RBC,Peritoneal Fluid < 2000 RBC/mcL
[2022-06-11 15:07] LABS: Glucose,Peritoneal Fluid 197 mg/dL (No Ref Range); LDH,Peritoneal Fluid 40 Units/L (No Ref Range); Total Protein,Peritoneal Fluid < 2.0 g/dL
[2022-06-11 16:18] LABS: Basophils,Peritoneal Fluid 0 %; Eosinophils,Peritoneal Fluid 0 %
[2022-06-12] MEDS: *HR* Heparin 5,000 UNIT/ML VIAL SQ SCH ×3 (06:21→20:37)
[2022-06-12 08:23] LABS: Basophils % 0.9 %; Immature Granulocytes % 0.3 % (0-4); Mean Platelet Volume 10.8 fL (9.4-12.4)
[2022-06-12 08:25] LABS: Eosinophils # 0.1 K/mcL (0.0-0.6); Eosinophils % 4.2 %; Hematocrit 33.5 % (37.5-50.1); Hemoglobin 11.7 g/dL (12.9-16.9); Immature Platelets 4.4 % (1.1-6.1); Lymphocytes # 1.2 K/mcL (0.6-4.6); Lymphocytes % 35.5 %; Mean Corpuscular HGB Conc 34.9 g/dL (31.6-35.5); Mean Corpuscular Hemoglobin 36.7 pg (28.0-33.3); Monocytes # 0.3 K/mcL (0.0-1.3); Monocytes % 10.3 %; Neutrophils # 1.6 K/mcL (1.6-8.9); Red Blood Count 3.19 M/mcL (4.19-5.50); Red Cell Distribution Width 13.2 % (11.5-14.5); Segmented Neutrophils % 48.8 %; White Blood Count 3.3 K/mcL (4.3-11.1)
[2022-06-12 08:29] LABS: Alanine Aminotransferase 45 Units/L (7-52); Albumin 2.8 g/dL (3.5-5.7); Albumin/Globulin Ratio 0.8 (1.1-2.2); Alkaline Phosphatase 90 Units/L (34-104); Aspartate Amino Transferase 67 Units/L (13-39); BUN/Creatinine Ratio 13 (6-26); Bilirubin,Total 1.7 mg/dL (0.3-1.0); Blood Urea Nitrogen 10 mg/dL (8-23); Calcium 8.7 mg/dL (8.6-10.3); Carbon Dioxide 31 mEq/L (23-29); Chloride 97 mEq/L (98-107); Globulin 3.6 g/dL (2.4-3.5); Glucose 176 mg/dL (70-105); Osmolality,Calculated 279 (280-300); Sodium 133 mEq/L (136-145); Total Protein 6.4 g/dL (6.4-8.9); eGFR For African Americans > 60 (> 60); eGFR For Non-African Americans > 60 (> 60)
[2022-06-12 08:30] LABS: Platelet Count 90 K/mcL (140-400)
[2022-06-12] MEDS ORDERED: cefTRIAXone 1,000 MG in 0.9 % Sodium Chloride 10 ML IVP SCH (09:00)
[2022-06-12] MEDS: Folic Acid 1 MG TABLET PO SCH (09:20)
[2022-06-12] MEDS: Furosemide 20 MG TABLET PO SCH (09:20)
[2022-06-12] MEDS: Nicotine 14 MG PATCH.TD24 TD SCH (09:20)
[2022-06-12] MEDS: Thiamine (B-1) 100 MG TABLET PO SCH (09:20)
[2022-06-12] MEDS: Vitamin B Complex/Vit C/Vit E 1 EACH TABLET PO SCH (09:20)
[2022-06-12] MEDS: *HR* OxyCODONE Immed Rel 5 MG TABLET PO PRN ×3 (10:00→23:19)
[2022-06-12] MEDS ORDERED: Furosemide 20 MG TABLET PO ONE (12:00)
[2022-06-12] MEDS ORDERED: Dextrose Gel 15 GM/37.5 ML TUBE PO PRN ×2 (13:13)
[2022-06-12] MEDS ORDERED: D5% in Water 1,000 ML IVC PRN (13:13)
[2022-06-12] MEDS ORDERED: *HR* Dextrose 50 % in Water (Syg) 50 ML SYRINGE IVP PRN (13:13)
[2022-06-12] MEDS: lisinopriL 20 MG TABLET PO SCH (14:05)
[2022-06-12] MEDS: Furosemide 40 MG TABLET PO SCH (16:07)
[2022-06-12] MEDS: Insulin LISPRO 300 UNITS/3 ML VIAL SUBQ SCH (16:29)
[2022-06-12] MEDS: Magnesium Oxide 400 MG TABLET PO SCH (20:36)
[2022-06-12] MEDS ORDERED: Pregabalin 75 MG CAPSULE PO SCH (21:00)
[2022-06-12] MEDS ORDERED: Insulin DETEMIR 100 UNIT/ML X5UNITS SUBQ SCH (21:00)
[2022-06-12] MEDS ORDERED: Insulin LISPRO 300 UNITS/3 ML VIAL SUBQ SCH (21:00)
[2022-06-13 03:01] LABS: Estimated Average Glucose 189 mg/dl; Hemoglobin A1C 8.2 %
[2022-06-13] MEDS: *HR* Heparin 5,000 UNIT/ML VIAL SQ SCH (05:16)
[2022-06-13] MEDS: *HR* OxyCODONE Immed Rel 5 MG TABLET PO PRN (05:23)
[2022-06-13] MEDS: Nicotine 14 MG PATCH.TD24 TD SCH (07:48)
[2022-06-13] MEDS: Insulin LISPRO 300 UNITS/3 ML VIAL SUBQ SCH (07:48)
[2022-06-13] MEDS: Vitamin B Complex/Vit C/Vit E 1 EACH TABLET PO SCH (07:49)
[2022-06-13] MEDS: Folic Acid 1 MG TABLET PO SCH (07:49)
[2022-06-13] MEDS: Magnesium Oxide 400 MG TABLET PO SCH (07:49)
[2022-06-13] MEDS: Thiamine (B-1) 100 MG TABLET PO SCH (07:49)
[2022-06-13] MEDS: lisinopriL 20 MG TABLET PO SCH (07:49)
[2022-06-13] MEDS: Furosemide 40 MG TABLET PO SCH (07:49)
[2022-06-13] MEDS ORDERED: Multivit/Ca/Min/Fe/FA 1 TAB TABLET PO SCH (09:00)
[2022-06-13] MEDS ORDERED: Pregabalin 75 MG CAPSULE PO SCH (09:00)
[2022-06-13 12:15] VITALS: BP 150/80; PULSE 83; TEMP 98; O2SAT 99
[2022-06-13 15:14] LABS: Fluid Source for Albumin PERITONEAL
== END 2022-06-13 12:40 | disposition home or self-care (01) ==
LOC: EMEROOARM 15:11 → 2ANU 15:11 → SUATTDRO 22:04 → 2ANU 22:54
PROVIDERS: ADMIT Internal Medicine; ATTEND Internal Medicine